=== PATIENT | male | born 1945 | race Two or more races ===

== ENCOUNTER 2018-10-11 17:13 | Inpatient (IN) | payer MEDICARE, OTHER ==
[~2018-10-11] VITALS: Ht 175.3 cm; Wt 94.0 kg
[2018-10-11] MEDS ORDERED: ONDANSETRON HCL 4MG/2ML INJ IV STA (17:15)
[2018-10-11 17:42] LABS: CHLORIDE 108 mEq/L (98-107)
[2018-10-11 17:46] LABS: ETHANOL BLOOD < 10 mg/dL; HEMATOCRIT. 43.3 % (42.0-52.0); MEAN CORPUSCULAR HEMOGLOBIN 33.1 pg (28.0-32.0); MEAN CORPUSCULAR VOLUME 95.2 fL (80.0-94.0); MEAN PLATELET VOLUME 8.8 fl (7.4-10.4); PLATELET 76 x1000/uL (130-400); RED BLOOD CELL COUNT 4.54 mill/uL (4.7-6.1); RED CELL DISTRIBUTION WIDTH 16.2 % (11.6-14.6)
[2018-10-11 17:48] LABS: LDL CHOLESTEROL 101 mg/dL (5-100)
[2018-10-11 17:52] LABS: D-DIMER 0.52 mg/L FEU (<0.50); INR 1.1; PROTHROMBIN TIME 11.4 sec (9.6-11.0)
[2018-10-11 18:09] LABS: PLATELET ESTIMATE DECREASED
[2018-10-11] MEDS ORDERED: IOHEXOL-350 100 ML BOTTLE ONE (19:53)
[2018-10-11 22:00] VITALS: BP 166/85
[2018-10-11] MEDS ORDERED: LISI2.5T47 MT (22:55)
[2018-10-11] MEDS ORDERED: FURO40TA5 MT (22:55)
[2018-10-11] MEDS ORDERED: OMEP40CA34 MT (22:55)
[2018-10-11] MEDS ORDERED: DABI150C MT (22:55)
[2018-10-11] MEDS ORDERED: METO-385 MT (22:55)
[2018-10-11] MEDS ORDERED: FERR324T8 MT (22:55)
[2018-10-11] MEDS ORDERED: POTA8CAP10 MT (22:55)
[2018-10-12] VITALS: BP 168/84
[2018-10-12] MEDS: ACETAMINOPHEN 325MG TABLET PO PRN ×2 (00:58→21:21)
[2018-10-12 04:00] VITALS: BP 148/85
[2018-10-12] MEDS: OMEPRAZOLE 20MG CAPSULE EXTENDED RELEASE PO SCH (06:16)
[2018-10-12 08:00] VITALS: BP 148/88
[2018-10-12] MEDS ORDERED: PNEUMOCOCCAL 23-VAL P-SAC VAC 0.5 ML IM ONE (08:00)
[2018-10-12] MEDS: METOPROLOL TARTRATE 50MG TABLET PO SCH ×2 (08:55→21:21)
[2018-10-12] MEDS: LISINOPRIL 2.5MG TABLET PO SCH (08:55)
[2018-10-12] MEDS: POTASSIUM CHLORIDE 8 MEQ TABLET.SA PO SCH (08:55)
[2018-10-12] MEDS: FUROSEMIDE 40MG TABLET PO SCH (08:55)
[2018-10-12] MEDS ORDERED: MEDICATION NOT ON FORMULARY EA (Furosemide 1 TAB) MT SCH (09:00)
[2018-10-12] MEDS ORDERED: MEDICATION NOT ON FORMULARY EA (Metoprolol Succinate 1 TAB) MT SCH (09:00)
[2018-10-12] MEDS ORDERED: MEDICATION NOT ON FORMULARY EA (Potassium Chloride 1 CAP) MT SCH (09:00)
[2018-10-12] MEDS ORDERED: MEDICATION NOT ON FORMULARY EA (Lisinopril 1 TAB) MT SCH (09:00)
[2018-10-12] MEDS ORDERED: APIXABAN 5 MG TABLET PO SCH (09:00)
[2018-10-12] MEDS ORDERED: MEDICATION NOT ON FORMULARY EA (Omeprazole 1 CAP) MT SCH (09:00)
[2018-10-12 09:41] LABS: HEMATOCRIT. 40.9 % (42.0-52.0); HEMOGLOBIN. 14.1 g/dL (14.0-18.0); MEAN CORPUSCULAR HEMOGLOBIN 32.9 pg (28.0-32.0); MEAN CORPUSCULAR VOLUME 95.1 fL (80.0-94.0); MEAN PLATELET VOLUME 8.5 fl (7.4-10.4); PLATELET 64 x1000/uL (130-400); RED CELL DISTRIBUTION WIDTH 15.8 % (11.6-14.6)
[2018-10-12 11:10] LABS: BG BASE EXCESS -2.4 mmol/L (-2.0-2.0); BG CARBOXYHEMOGLOBIN 0.4 % (0.5-1.5); BG DEOXYHEMOGLOBIN 3.4 % (0.0-5.0); BG HCO3 ACT 19.6 mmol/L (22.0-26.0); BG METHEMOGLOBIN 0.2 % (0.0-1.5); BG OXYGEN SATURATION 96.6 % (92.0-98.5); BG PCO2 27.4 mmHg (35.0-45.0); BG PH 7.473 (7.350-7.450); BG PO2 83.9 mmHg (75.0-100.0); BG SAMPLE SITE RIGHT BRACHIAL; BG TOTAL HEMOGLOBIN 14.8 g/dL (12.0-18.0); BG VENT MODE ROOM AIR
[2018-10-12] MEDS ORDERED: VANCOMYCIN 1,500 MG in DEXT 5% WATER 250 ML IV SCH (12:00)
[2018-10-12 12:07] LABS: PLATELET ESTIMATE MARKEDLY DECREASED
[2018-10-12 12:35] LABS: CLARITY URINE CLEAR (CLEAR); COLOR URINE YELLOW (YELLOW); KETONES URINE NEGATIVE (NEGATIVE); LEUKOCYTE ESTERASE URINE NEGATIVE (NEGATIVE); NITRITE URINE NEGATIVE (NEGATIVE); OCCULT BLOOD URINE TRACE (NEGATIVE); PH URINE 6.5 (4.5-8.0); PROTEIN URINE NEGATIVE (NEGATIVE); SPECIFIC GRAVITY URINE 1.008 (1.005-1.030)
[2018-10-12 13:00] LABS: *AMPHETAMINES SCREEN URINE NEGATIVE (NEGATIVE); *BARBITURATES SCREEN URINE NEGATIVE (NEGATIVE); *BENZODIAZEPINES SCREEN URINE NEGATIVE (NEGATIVE); *COCAINE SCREEN URINE NEGATIVE (NEGATIVE); METHADONE URINE SCREEN NEGATIVE (NEGATIVE); OPIATES URINE SCREEN NEGATIVE (NEGATIVE); PHENCYCLIDINE URINE SCREEN NEGATIVE (NEGATIVE)
[2018-10-12 13:01] LABS: CANNABINOID URINE SCREEN NEGATIVE (NEGATIVE)
[2018-10-12] MEDS: PIPERACILLIN/TAZ 2.25G PREMIX 50 ML IV SCH ×2 (13:59→18:18)
[2018-10-12] MEDS ORDERED: LACTULOSE 20G/30ML UDC PO NR (14:15)
[2018-10-12 16:22] LABS: CHLORIDE 106 mEq/L (98-107)
[2018-10-12 16:29] LABS: LDL CHOLESTEROL 100 mg/dL (5-100)
[2018-10-12 16:30] LABS: HDL CHOLESTEROL 44 mg/dL (40-59)
[2018-10-12 19:45] LABS: HEPATITIS A AB IGM NEGATIVE (NEGATIVE); HEPATITIS B SURFACE ANTIGEN NEGATIVE
[2018-10-12 20:00] VITALS: BP 163/85
[2018-10-12] MEDS ORDERED: GABA-531 MT (20:30)
[2018-10-12] MEDS: ATORVASTATIN CALCIUM 40MG TABLET PO SCH (21:21)
[2018-10-12] MEDS: LACTULOSE 20G/30ML UDC PO SCH (21:22)
[2018-10-13] VITALS: BP 153/84
[2018-10-13 00:15] LABS: CLARITY URINE CLEAR (CLEAR); COLOR URINE YELLOW (YELLOW); KETONES URINE NEGATIVE (NEGATIVE); LEUKOCYTE ESTERASE URINE NEGATIVE (NEGATIVE); NITRITE URINE NEGATIVE (NEGATIVE); OCCULT BLOOD URINE 2+ (NEGATIVE); PROTEIN URINE TRACE (NEGATIVE); SPECIFIC GRAVITY URINE 1.023 (1.005-1.030)
[2018-10-13] MEDS: PIPERACILLIN/TAZ 2.25G PREMIX 50 ML IV SCH ×4 (00:25→17:51)
[2018-10-13 00:43] LABS: *AMPHETAMINES SCREEN URINE NEGATIVE (NEGATIVE); *BARBITURATES SCREEN URINE NEGATIVE (NEGATIVE); *BENZODIAZEPINES SCREEN URINE NEGATIVE (NEGATIVE)
[2018-10-13 00:44] LABS: CANNABINOID URINE SCREEN NEGATIVE (NEGATIVE); METHADONE URINE SCREEN NEGATIVE (NEGATIVE); OPIATES URINE SCREEN NEGATIVE (NEGATIVE); PHENCYCLIDINE URINE SCREEN NEGATIVE (NEGATIVE)
[2018-10-13 00:46] LABS: *COCAINE SCREEN URINE NEGATIVE (NEGATIVE)
[2018-10-13 04:00] VITALS: BP 147/87
[2018-10-13] MEDS: LACTULOSE 20G/30ML UDC PO SCH ×4 (06:51→22:12)
[2018-10-13] MEDS: OMEPRAZOLE 20MG CAPSULE EXTENDED RELEASE PO SCH (06:51)
[2018-10-13 07:35] LABS: HEMATOCRIT. 43.2 % (42.0-52.0); HEMOGLOBIN. 14.8 g/dL (14.0-18.0); MEAN CORPUSCULAR HEMOGLOBIN 32.9 pg (28.0-32.0); MEAN PLATELET VOLUME 8.4 fl (7.4-10.4); PLATELET 62 x1000/uL (130-400); RED BLOOD CELL COUNT 4.51 mill/uL (4.7-6.1); RED CELL DISTRIBUTION WIDTH 15.9 % (11.6-14.6)
[2018-10-13 07:45] LABS: CHLORIDE 106 mEq/L (98-107)
[2018-10-13 08:32] LABS: ATYPICAL LYMPHOCYTES 1; PLATELET ESTIMATE DECREASED
[2018-10-13] MEDS: LISINOPRIL 2.5MG TABLET PO SCH (09:15)
[2018-10-13] MEDS: FUROSEMIDE 40MG TABLET PO SCH (09:15)
[2018-10-13] MEDS: POTASSIUM CHLORIDE 8 MEQ TABLET.SA PO SCH (09:15)
[2018-10-13] MEDS: METOPROLOL TARTRATE 50MG TABLET PO SCH ×2 (09:15→22:12)
[2018-10-13 20:00] VITALS: BP 158/85
[2018-10-13] MEDS: ATORVASTATIN CALCIUM 40MG TABLET PO SCH (22:11)
[2018-10-14] VITALS: BP 157/74
[2018-10-14] MEDS: PIPERACILLIN/TAZ 2.25G PREMIX 50 ML IV SCH ×3 (00:25→12:56)
[2018-10-14 04:00] VITALS: BP 143/78
[2018-10-14] MEDS: OMEPRAZOLE 20MG CAPSULE EXTENDED RELEASE PO SCH (05:57)
[2018-10-14] MEDS: LACTULOSE 20G/30ML UDC PO SCH (05:57)
[2018-10-14 06:33] LABS: HEMATOCRIT. 40.5 % (42.0-52.0); HEMOGLOBIN. 14.1 g/dL (14.0-18.0); MEAN CORPUSCULAR HEMOGLOBIN 32.9 pg (28.0-32.0); MEAN CORPUSCULAR VOLUME 94.7 fL (80.0-94.0); MEAN PLATELET VOLUME 9.4 fl (7.4-10.4); PLATELET 74 x1000/uL (130-400); RED BLOOD CELL COUNT 4.27 mill/uL (4.7-6.1); RED CELL DISTRIBUTION WIDTH 15.7 % (11.6-14.6)
[2018-10-14 06:36] LABS: CHLORIDE 103 mEq/L (98-107)
[2018-10-14 08:00] VITALS: BP 147/82
[2018-10-14] MEDS: POTASSIUM CHLORIDE 8 MEQ TABLET.SA PO SCH (08:26)
[2018-10-14] MEDS: METOPROLOL TARTRATE 50MG TABLET PO SCH (09:00)
[2018-10-14] MEDS: FUROSEMIDE 40MG TABLET PO SCH (09:00)
[2018-10-14] MEDS: LISINOPRIL 2.5MG TABLET PO SCH (09:00)
[2018-10-14] MEDS ORDERED: POTASSIUM CHLORIDE INJ 40 MEQ in DEXT 5% WATER 250 ML IV SCH (11:30)
[2018-10-14 12:00] VITALS: BP 133/74
[2018-10-14 13:21] LABS: CHLORIDE 106 mEq/L (98-107)
[2018-10-14 14:05] LABS: PLATELET ESTIMATE DECREASED
[2018-10-14] MEDS ORDERED: POTASSIUM CHLORIDE 20MEQ TABLET SR PO SCH (15:00)
[2018-10-14 18:28] VITALS: BP 158/86
== END 2018-10-14 20:28 | disposition home health service (06) ==
LOC: ER 17:13 → EDBEDREQSVC 19:01 → EDBEDREQ 19:01 → 5WST 19:01 → EDBEDREQTM 19:01 → ENRESERV 20:32 → 5WST 10-13 02:46
PROVIDERS: ADMIT Internal Medicine; ATTEND Internal Medicine
DX: K80.00 Calculus of gallbladder with acute cholecystitis without obstruction (principal); G93.40 Encephalopathy, unspecified; G81.91 Hemiplegia, unspecified affecting right dominant side; D69.6 Thrombocytopenia, unspecified; E72.20 Disorder of urea cycle metabolism, unspecified; I07.1 Rheumatic tricuspid insufficiency; I13.0 Hypertensive heart and chronic kidney disease with heart failure and stage 1 through stage 4 chronic kidney disease, or unspecified chronic kidney disease; I48.91 Unspecified atrial fibrillation; E86.0 Dehydration; I27.20 Pulmonary hypertension, unspecified; I50.42 Chronic combined systolic (congestive) and diastolic (congestive) heart failure; K74.60 Unspecified cirrhosis of liver; G51.0 Bell's palsy; L40.9 Psoriasis, unspecified; N18.9 Chronic kidney disease, unspecified; N20.0 Calculus of kidney; E78.5 Hyperlipidemia, unspecified; D72.819 Decreased white blood cell count, unspecified; Z79.01 Long term (current) use of anticoagulants
CPT/HCPCS: 36415; 36600; 70496; 70498; 71045; 74181; 76700; 78582; 80061; 80202; 80305; 80320; 82140; 82375; 82805; 82962; 83721; 83880; 84443; 84484; 85379; 86705; 86709; 86803; 87340; 92610; 93005; 93306; 93970; 96374; 97162; 99285; A9558; J2405; J2543; J3370; J3480; J7060; Q9967; G0480